=== PATIENT | female | born 1990 | race Hispanic/Latino ===

== ENCOUNTER 2017-10-09 05:20 | Emergency (ER) | payer SELFPAY ==
[~2017-10-09 05:20] MED LIST: MO8B PO; PNV1TABL77 PO
[2017-10-09 05:48] LABS: APPEARANCE,URINE Cloudy (CLEAR); BILIRUBIN,URINE Negative (NEGATIVE); COLOR,URINE Yellow (YELLOW); GLUCOSE, URINE (UA) Negative (NEGATIVE); KETONES,URINE Negative (NEGATIVE); LEUKOCYTE ESTERASE ,URINE Moderate (NEGATIVE); NITRATE,URINE Negative (NEGATIVE); OCCULT BLOOD,URINE Negative (NEGATIVE); PH,URINE 7.5 (5.0-8.0); PROTEIN,URINE Negative (NEGATIVE)
[2017-10-09 05:51] LABS: HCG,QUAL RESULT NEGATIVE (NEGATIVE)
[2017-10-09] MEDS ORDERED: SODIUM CHLORIDE 0.9% 1000ML 1,000 ML IV ONE (05:53)
[2017-10-09] MEDS ORDERED: ONDANSETRON HCL 4 MG/2 ML VIAL ONE (05:53)
[2017-10-09] MEDS ORDERED: DICYCLOMINE HCL 10 MG/ML 2ML AMP IM ONE (05:53)
[2017-10-09 05:56] LABS: AMPHET/METH SCREEN,URINE NEGATIVE (NEGATIVE); BARBITURATE SCREEN, URINE NEGATIVE (NEGATIVE); BENZODIAZEPINES SCREEN,URINE NEGATIVE (NEGATIVE); CANNABINOID SCREEN,URINE NEGATIVE (NEGATIVE); COCAINE SCREEN,URINE NEGATIVE (NEGATIVE); OPIATE SCREEN,URINE NEGATIVE (NEGATIVE); PHENCYCLIDINE SCREEN,URINE NEGATIVE (NEGATIVE)
[2017-10-09 06:01] LABS: BACTERIA,URINE Few /HPF (None Seen); MUCUS,URINE Rare LPF (None Seen); RBC,URINE 0-1 /HPF (0-1)
[2017-10-09 06:02] LABS: AMORPHOUS SEDIMENT,UR Moderate /LPF (None Seen)
[2017-10-09 06:03] LABS: BASOPHILS % (AUTO) 0.4 % (0.0-5.0); EOSINOPHILS % (AUTO) 1.6 % (0.0-8.0); HEMATOCRIT 40.1 % (36-48); LYMPHOCYTES % (AUTO) 20.8 % (21.0-51.0); MEAN CORPUSCULAR HEMOGLOBIN 30.1 pg (27.0-33.0); MEAN CORPUSCULAR HGB CONC 34.3 g/dL (32.0-36.0); MEAN CORPUSCULAR VOLUME 87.6 fL (79-99); MONOCYTES % (AUTO) 8.1 % (3.0-13.0); NEUTROPHILS % (AUTO) 69.1 % (40.0-77.0); PLATELET COUNT (AUTO) 254 K/uL (130-400); RED BLOOD CELL COUNT(AUTO) 4.58 MIL/uL (4.00-5.50); RED CELL DISTRIBUTION WIDTH 12.8 % (11.0-15.5); WHITE BLOOD COUNT (AUTO) 5.8 K/uL (4.8-10.8)
[2017-10-09 06:16] LABS: CREATININE 0.7 mg/dL (0.5-1.5); POTASSIUM 3.7 mmol/L (3.5-5.1)
[2017-10-09 06:23] LABS: ALBUMIN 3.5 g/dL (3.5-5.0); BILIRUBIN,DIRECT 0.1 mg/dL (0.0-0.3); BILIRUBIN,TOTAL 0.5 mg/dL (0.2-1.0); TOTAL PROTEIN, SERUM 8.1 g/dL (6.0-8.3)
[2017-10-09] MEDS ORDERED: KETOROLAC TROMETHAMINE 30MG/ML ONE (06:38)
== END 2017-10-09 07:04 | disposition home or self-care (01) ==
LOC: EDH 05:20
DX: K80.70 Calculus of gallbladder and bile duct without cholecystitis without obstruction (principal); Z88.1 Allergy status to other antibiotic agents; Z98.890 Other specified postprocedural states
CPT/HCPCS: 36415; 76705; 80048; 80076; 80305; 81001; 81025; 83690; 85025; 96361; 96372; 96374; 96375; 99285; J0500; J1885; J2405; J7030

== ENCOUNTER 2017-11-15 22:43 | Emergency (ER) | payer BC, OTHER ==
[2017-11-16 00:09] LABS: BASOPHILS % (AUTO) 0.4 % (0.0-5.0); EOSINOPHILS % (AUTO) 4.4 % (0.0-8.0); HEMATOCRIT 37.3 % (36-48); LYMPHOCYTES % (AUTO) 23.2 % (21.0-51.0); MEAN CORPUSCULAR HEMOGLOBIN 29.4 pg (27.0-33.0); MEAN CORPUSCULAR HGB CONC 33.8 g/dL (32.0-36.0); MONOCYTES % (AUTO) 7.9 % (3.0-13.0); NEUTROPHILS % (AUTO) 64.1 % (40.0-77.0); PLATELET COUNT (AUTO) 294 K/uL (130-400); RED BLOOD CELL COUNT(AUTO) 4.29 MIL/uL (4.00-5.50); RED CELL DISTRIBUTION WIDTH 12.1 % (11.0-15.5)
[2017-11-16 00:15] LABS: CREATININE 0.7 mg/dL (0.5-1.5); POTASSIUM 3.5 mmol/L (3.5-5.1)
[2017-11-16 00:20] LABS: ALBUMIN 3.3 g/dL (3.5-5.0); BILIRUBIN,TOTAL 0.3 mg/dL (0.2-1.0); TOTAL PROTEIN, SERUM 7.5 g/dL (6.0-8.3)
== END 2017-11-16 00:48 | disposition home or self-care (01) ==
LOC: EDH 22:43
DX: M54.2 Cervicalgia (principal); M25.511 Pain in right shoulder; R11.0 Nausea; Z90.49 Acquired absence of other specified parts of digestive tract; Z88.1 Allergy status to other antibiotic agents
CPT/HCPCS: 36415; 80053; 83690; 85025

== ENCOUNTER 2021-09-04 14:45 | Emergency (ER) | payer BC ==
[~2021-09-04] VITALS: Ht 162.6 cm; Wt 77.1 kg
[~2021-09-04 14:45] MED LIST changes: +IBUP-1493 PO; -MO8B PO
[2021-09-04] MEDS ORDERED: 0.9%NACL 1000ML 1,000 ML IV ONE ×2 (15:00→15:09)
[2021-09-04 15:30] LABS: BASOPHILS % (AUTO) 0.5 % (0.0-5.0); EOSINOPHILS % (AUTO) 1.2 % (0.0-8.0); LYMPHOCYTES % (AUTO) 24.6 % (21.0-51.0); MEAN CORPUSCULAR HEMOGLOBIN 29.6 pg (27.0-33.0); MEAN CORPUSCULAR HGB CONC 33.9 g/dL (32.0-36.0); MEAN CORPUSCULAR VOLUME 87.2 fL (79-99); MONOCYTES % (AUTO) 6.4 % (3.0-13.0); NEUTROPHILS % (AUTO) 67.1 % (40.0-77.0); PLATELET COUNT (AUTO) 240 K/uL (130-400); RED BLOOD CELL COUNT(AUTO) 4.36 MIL/uL (4.00-5.50); RED CELL DISTRIBUTION WIDTH 11.8 % (11.0-15.5); WHITE BLOOD COUNT (AUTO) 8.5 K/uL (4.8-10.8)
[2021-09-04 15:38] LABS: CREATININE 0.7 mg/dL (0.5-1.5); POTASSIUM 3.2 mmol/L (3.5-5.1)
[2021-09-04 16:04] LABS: ALBUMIN 4.2 g/dL (3.5-5.0); BILIRUBIN,TOTAL 0.4 mg/dL (0.2-1.0); TOTAL PROTEIN, SERUM 8.2 g/dL (6.0-8.3)
[2021-09-04 16:23] LABS: APPEARANCE,URINE Clear (CLEAR); BILIRUBIN,URINE Negative (NEGATIVE); COLOR,URINE Yellow (YELLOW); GLUCOSE, URINE (UA) Negative (NEGATIVE); KETONES,URINE Trace mg/dL (NEGATIVE); LEUKOCYTE ESTERASE ,URINE Small (NEGATIVE); NITRATE,URINE Negative (NEGATIVE); OCCULT BLOOD,URINE Large (NEGATIVE); PH,URINE 6.5 (5.0-8.0); PROTEIN,URINE Negative (NEGATIVE)
[2021-09-04 16:34] LABS: BACTERIA,URINE Few /HPF (None Seen); MUCUS,URINE Rare LPF (None Seen); SQUAMOUS EPITHELIAL CELL,UR Few /HPF (0-2)
[2021-09-04] MEDS ORDERED: ACET-66 PO (16:41)
[2021-09-04 16:55] VITALS: BP 130/76
== END 2021-09-04 17:01 | disposition home or self-care (01) ==
LOC: EDH 14:45
DX: O20.0 Threatened abortion (principal); Z88.1 Allergy status to other antibiotic agents; Z79.1 Long term (current) use of non-steroidal anti-inflammatories (NSAID); Z3A.01 Less than 8 weeks gestation of pregnancy
CPT/HCPCS: 36415; 76801; 80053; 81001; 84702; 84703; 85025; 99284; J7030

== ENCOUNTER 2022-12-17 04:51 | Emergency (ER) | payer BC ==
[~2022-12-17] VITALS: Ht 162.6 cm; Wt 77.1 kg
[~2022-12-17 04:51] MED LIST changes: +ACET-66 PO
[2022-12-17] MEDS ORDERED: 0.9%NACL 1000ML 1,000 ML IV ONE ×2 (05:00)
[2022-12-17] MEDS ORDERED: ACETAMINOPHEN 500 MG TABLET PO ONE (05:00)
[2022-12-17] MEDS ORDERED: ONDANSETRON 4MG INJ IVP ONE (05:00)
[2022-12-17] MEDS ORDERED: ACETAMINOPHEN 500 MG TABLET ONE (05:00)
[2022-12-17] MEDS ORDERED: 0.9%NACL 1000ML 2,000 ML IV ONE (05:01)
[2022-12-17 05:24] LABS: BASOPHILS % (AUTO) 0.1 % (0.0-5.0); EOSINOPHILS % (AUTO) 2.6 % (0.0-8.0); HEMATOCRIT 40.9 % (36-48); LYMPHOCYTES % (AUTO) 18.8 % (21.0-51.0); MEAN CORPUSCULAR HEMOGLOBIN 28.7 pg (27.0-33.0); MEAN CORPUSCULAR HGB CONC 32.5 g/dL (32.0-36.0); MEAN CORPUSCULAR VOLUME 88.1 fL (79-99); MONOCYTES % (AUTO) 6.9 % (3.0-13.0); NEUTROPHILS % (AUTO) 71.5 % (40.0-77.0); PLATELET COUNT (AUTO) 250 K/uL (130-400); RED BLOOD CELL COUNT(AUTO) 4.64 MIL/uL (4.00-5.50); RED CELL DISTRIBUTION WIDTH 13.5 % (11.0-15.5)
[2022-12-17 05:26] LABS: APPEARANCE,URINE CLEAR (CLEAR); BILIRUBIN,URINE MODERATE mg/dL (NEGATIVE); COLOR,URINE YELLOW (YELLOW); GLUCOSE, URINE (UA) NEGATIVE (NEGATIVE); KETONES,URINE NEGATIVE (NEGATIVE); LEUKOCYTE ESTERASE ,URINE NEGATIVE Leu/uL (NEGATIVE); NITRATE,URINE NEGATIVE (NEGATIVE); OCCULT BLOOD,URINE NEGATIVE (NEGATIVE); PROTEIN,URINE NEGATIVE (NEGATIVE); UROBILINOGEN,URINE 0.2 mg/dL (0.2-1.0)
[2022-12-17 05:30] LABS: BACTERIA,URINE None Seen /HPF (None Seen); RBC,URINE 0-1 /HPF (0-1); WBC,URINE 0-1 /HPF (0-1)
[2022-12-17] MEDS ORDERED: LEVOFLOXACIN 750 MG TABLET PO SCH (05:30)
[2022-12-17] MEDS ORDERED: LEVOFLOXACIN 500 MG TABLET ONE (05:33)
[2022-12-17 05:42] LABS: ALBUMIN 4.1 g/dL (3.5-5.0); CREATININE 0.7 mg/dL (0.5-1.5); POTASSIUM 3.6 mmol/L (3.5-5.1); TOTAL PROTEIN, SERUM 8.2 g/dL (6.0-8.3)
[2022-12-17] MEDS ORDERED: ONDA-104 PO (05:52)
[2022-12-17] MEDS ORDERED: LEVO750T68 PO (05:52)
[2022-12-17 06:23] VITALS: BP 110/59
== END 2022-12-17 06:41 | disposition home or self-care (01) ==
LOC: EDH 04:51
DX: R19.7 Diarrhea, unspecified (principal); E86.0 Dehydration; E11.9 Type 2 diabetes mellitus without complications; Z90.49 Acquired absence of other specified parts of digestive tract; Z88.1 Allergy status to other antibiotic agents; Z79.1 Long term (current) use of non-steroidal anti-inflammatories (NSAID); Z20.822 Contact with and (suspected) exposure to COVID-19
CPT/HCPCS: 99284; 96374; 87635; 96361; 80053; 83690; 85025; 87804 ×2; 81001; 81025; 36415; C9803; J7030; J2405